=== PATIENT | male | born 1980 | race Caucasian/White ===

== ENCOUNTER 2024-11-03 11:06 | Emergency (ER) | payer MEDICAID, SELFPAY ==
[2024-11-03 11:18] VITALS: PULSE 88; RESP 16; O2SAT 98
[2024-11-03 11:47] VITALS: BP 159/79; PULSE 64; RESP 18; TEMP 36.8; O2SAT 98; BMI 27.3
--- NOTE | 2024-11-03 11:59 | EDNOTE_ITS ---
ED Headache RME/HPI General Chief Complaint: Headache Stated Complaint: HEADACHE Time Seen by Provider: 11/03/24 11:43 Arrival date/time: 11/03/24 11:06 This is a 44-year-old male patient denies any trauma. Patient states pain started in his neck and goes up his head. Patient states that it is a stabbing pain in the back of his head. Patient states that sometimes it feels like a shocking feeling in the back of his head. Patient also has complaints of feeling like something is crawling in under his skin in his head. Related Data Previous Rx's ?Medication ?Instructions ?Recorded ibuprofen 800 mg tablet 800 mg PO Q6H PRN pain #14 t abs 11/03/24 Allergies Allergy/AdvReac Type Severity Reaction Status Date / Time No Known Allergies Allergy Verified 11/03/24 11:20 Course Orders Category Date Time Status CT head/brain wo con Stat Exams 11/03/24 12:02 Completed Acetaminophen Tab [Tylenol ES Tab] Med 11/03/24 13:03 Once 1,000 mg PO X1 ONE CYCLObenzaPRINE [Flexeril] Med 11/03/24 13:03 Once 5 mg PO X1 ONE Ibuprofen Tab [Motrin Tab] Med 11/03/24 13:03 Once 800 mg PO X1 ONE Vital Signs Vital signs: Vital Signs Temperature 98.3 F 11/03/24 11:47 Pulse Rate 64 11/03/24 11:47 Respiratory Rate 18 11/03/24 11:47 Blood Pressure 159/79 H 11/03/24 11:47 Pulse Oximetry (%) 98 11/03/24 11:47 Oxygen Delivery Method Room Air 11/03/24 11:47 Headache MDM Narrative MDM Narrative:: I spoke to patient at length patient is very insistent on a CT scan. I offered patient pain medications and a muscle relaxant and he did not want it until he had a CT scan. Patient states that he feels like there is something wrong because he has never had a headache like this before. ct scan head: Findings: No significant ventricular enlargement. Intra-axial or extra-axial hemorrhage density is not seen. No mass effect or midline shift Basal cisterns are not remarkable. Fourth ventricle is midline. Cranial vault intact. Impression: Negative for acute hemorrhage, mass effect or midline shift Discharge Plan Plan Patient Disposition: HOME (Self Care) Patient condition on transfer: Stable Prescriptions/Referrals Prescriptions/Med Rec: New ibuprofen 800 mg tablet 800 mg PO Q6H PRN (Reason: pain) Qty: 14 0RF Referrals: Bharat Guthrie MD [Primary Care Provider] - In 1 week Problem List Clinical Impression: Headache Patient/Caregiver Discharge Instructions Discharge Activity: activity as tolerated Education Materials: Self-Care for Headaches Additional Instructions: Follow up with primary provider in 1-2 days. Come back to ED if symptoms change or worsen Print Language: [place] Stand Alone Forms: Tenisha Award Info., Patient Portal Info Letter PA/NUT SORTER OPERATOR Supervising Physician PA/NUT SORTER OPERATOR Supervising Physician: janet
--- NOTE | 2024-11-03 12:02 | XR_ITS ---
Examination: CT brain head without contrast. 2-D sagittal coronal reconstructions Date and time of exam:11/03/2024, 12:13 PM CTDI: vol (mGy):55 DLP: (mGycm):1124 Technique: Multiple CT axial sections of the brain have been obtained, 5 mm slice thickness. Contrast has not been administered. 2-D sagittal, coronal reconstructions have been obtained Low dose protocols were performed. One or more of the following dose reduction techniques were used; automated exposure control, adjustment of the mA and/or KV according to patient size, use of iterative reconstruction technique. Findings: No significant ventricular enlargement. Intra-axial or extra-axial hemorrhage density is not seen. No mass effect or midline shift Basal cisterns are not remarkable. Fourth ventricle is midline. Cranial vault intact. Impression: Negative for acute hemorrhage, mass effect or midline shift
[2024-11-03] MEDS: IBUPROFEN TAB 400 MG TABLET 800 MG PO (13:30)
[2024-11-03] MEDS: CYCLObenzaPRINE 5 MG TABLET PO (13:30)
[2024-11-03] MEDS: ACETAMINOPHEN 500 MG TABLET 1000 MG PO (13:30)
== END 2024-11-03 14:18 | disposition home or self-care (01) ==
PROVIDERS: Emergency Provider Family Medicine; PCP Family Medicine
DX: R51.9 Headache, unspecified (principal)
CPT/HCPCS: 70450; 99284; A9270

== ENCOUNTER 2024-11-30 05:58 | Emergency (ER) | payer MEDICAID, SELFPAY ==
[2024-11-30 06:00] VITALS: PULSE 104; RESP 18; O2SAT 98; BMI 22.7
[2024-11-30 06:03] VITALS: BP 165/79; PULSE 79; RESP 18; TEMP 36.7; O2SAT 98
--- NOTE | 2024-11-30 06:26 | XR_ITS ---
Examination: CT brain head without contrast. 2-D sagittal coronal reconstructions Date and time of exam:11/30/2024, 7:43 AM CTDI: vol (mGy):54 DLP: (mGycm):1064 INDICATION: Headache COMPARISON: 11/03/2024 Technique: Multiple CT axial sections of the brain have been obtained, 5 mm slice thickness. Contrast has not been administered. 2-D sagittal, coronal reconstructions have been obtained Low dose protocols were performed. One or more of the following dose reduction techniques were used; automated exposure control, adjustment of the mA and/or KV according to patient size, use of iterative reconstruction technique. Findings: No significant ventricular enlargement. Intra-axial or extra-axial hemorrhage density is not seen. No mass effect or midline shift Basal cisterns are not remarkable. Fourth ventricle is midline. Cranial vault intact. Impression: Negative for acute hemorrhage, mass effect or midline shift
[2024-11-30 07:56] VITALS: BP 181/82; PULSE 73; RESP 18; TEMP 36.8; O2SAT 98
--- NOTE | 2024-11-30 08:14 | PD.EDADULT ---
ED General RME/HPI General Chief complaint: Psychiatric Symptoms Stated complaint: BUGS ARE INSIDE OF HIM Time Seen by Provider: 11/30/24 06:10 Arrival date/time: 11/30/24 05:58 44-year-old male presents emergency department today complaints of headache and patient reports that he has bugs inside of him patient reports no chest pain or shortness of breath no fever Limitations: no limitations Related Data Previous Rx's ?Medication ?Instructions ?Recorded ibuprofen 800 mg tablet 800 mg PO Q6H PRN pain #14 tabs 11/03/24 ibuprofen 600 mg tablet 600 mg PO Q6H #30 tabs 11/30/24 mupirocin 2 % topical ointment 1 applic topical TID 10 days #22 11/30/24 grams Allergies Allergy/AdvReac Type Severity Reaction Status Date / Time No Known Allergies Allergy Verified 11/03/24 11:20 Review of Systems Review of Systems Systems Reviewed: All systems reviewed, normal except as documented Constitutional Constitutional: Reports system reviewed and no additional complaints, except as documented, Denies fever(s) and Reports headache(s) Eyes Eyes: Reports system reviewed and no additional complaints, except as documented and Denies blurry vision ENT Ears, Nose, Mouth, and Throat: Reports system reviewed and no additional complaints, except as documented, Reports headache(s), Denies nasal congestion and Denies nasal discharge Cardiovascular Cardiovascular: Reports system reviewed and no additional complaints, except as documented, Denies chest pain and Denies dyspnea Respiratory Respiratory: Reports system reviewed and no additional complaints, except as documented, Denies chest congestion, Denies cough and Denies dyspnea Gastrointestinal Gastrointestinal: Reports system reviewed and no additional complaints, except as documented and Denies abdominal pain Integumentary/Breasts Skin/Breast: Reports system reviewed and no additional complaints, except as documented and Reports rash (Skin rash right-sided neck) Neurologic Neurologic: Reports system reviewed and no additional complaints, except as documented, Reports as per HPI and Reports headache(s) Past Medical History Past Medical History CARDIAC: Negative Cardiac Disorders or Congestive Heart Failure RESPIRATORY: Negative Chronic Obstructive Pulmonary Disease (COPD) or Asthma GENITOURINARY: Negative Renal Disease ENDOCRINE: Negative Diabetes Mellitus Type 1 or Diabetes Mellitus Type 2 HEMATOLOGIC: Negative Sickle Cell Disease Social History SMOKING STATUS: Never smoker ED Exam General Limitations: Present no limitations General appearance: Present alert and in no apparent distress Head Head exam: Present atraumatic Eye Eye exam: Present normal appearance, PERRL and EOMI ENT ENT exam: Present normal exam, normal oropharynx and mucous membranes moist Neck Neck exam: Present normal inspection, full ROM and trachea midline Chest Chest inspection: Present normal inspection and symmetric chest wall rise Respiratory Respiratory exam: Present normal lung sounds bilaterally Cardiovascular Cardiovascular exam: Present regular rate, normal rhythm and normal heart sounds Abdominal Exam Abdominal exam: Present soft and normal bowel sounds Extremities Exam Extremities exam: Present normal inspection and full ROM Back Exam Back exam: Present normal inspection and full ROM Neurological Exam Neurological exam: Present alert, oriented X3 and CN II-XII intact Psychiatric Psychiatric exam: Present normal affect and normal mood Skin Skin exam: Present warm, dry, intact and normal color Course Quality Measures none Orders Category Date Time Status CT head/brain wo con Stat Exams 11/30/24 06:26 Completed Vital Signs Vital signs: Vital Signs Temperature 98.1 F 11/30/24 06:03 Pulse Rate 79 11/30/24 06:03 Respiratory Rate 18 11/30/24 06:03 Blood Pressure 165/79 H 11/30/24 06:03 Pulse Oximetry (%) 98 11/30/24 06:03 Oxygen Delivery Method Room Air 11/30/24 06:03 O2 saturation 98% room air within the limits MDM Patient data External records reviewed:: [facility] previous records Clinical information provided by:: patient Social determinants that could affect healthcare access:: none Patient has the following chronic illnesses:: None How is presenting disease/condition affected by chronic disease/condition?: no chronic disease Evaluation data The following diagnostics were reviewed and interpreted by me:: other (specify) Lab and/or radiology exams considered but not ordered:: N/A Interpretation Summary: Consider not ordered Medications Medications considered but not ordered:: Given Medication administrations:: Given Consultations Consultation(s) initiated? (list below): No Diagnosis Differential Diagnosis ED Complaint MDM: Formication, cellulitis, abscess, headache Most likely diagnosis given after review of the tests above:: Formication, atopic dermatitis, headache Admission Indicated Admission indicated?: not indicated Explain why admission is indicated or not indicated:: No criteria Admission Request Was there a request for admission?: No Disposition Plan Disposition Plan: Discharge Discharge Attestation Discharge Attestation: The patient and all family members were given an opportunity to ask questions and understood the discharge instructions. Discharge instructions specifically effects, indications for sooner follow up or return to the emergency department, and the expected course of current diagnosis. Patient condition: Stable Medical Decision Making MDM Narrative MDM Narrative: 44-year-old male presents emergency department today complaints of headache and patient reports that he has bugs inside of him patient reports no chest pain or shortness of breath no fever I discussed with the patient whether or not he has any psychiatric history patient declines any I suspect patient is most likely schizophrenic and if not schizophrenic patient most likely uses drugs. Symptoms are consistent with formication CT scan of the head obtained no acute emergent findings noted Patient discharged home in no distress to follow-up with primary care doctor in the next 24 to 48 hours and for any worsening symptoms to return to the ER immediately Differential Diagnosis Differential Diagnosis: Formication, cellulitis, abscess, headache Medical Records Medical records reviewed: Yes I reviewed the patient's medical records. Radiology Data Radiology results reviewed: Yes I reviewed the patient's radiology results. Discharge Plan Plan Patient Disposition: HOME (Self Care) Disposition Comment: Stable Prescriptions/Referrals Prescriptions/Med Rec: New mupirocin 2 % ointment 1 applic topical TID 10 Days Qty: 22 0RF ibuprofen 600 mg tablet 600 mg PO Q6H Qty: 30 0RF No Action ibuprofen 800 mg tablet 800 mg PO Q6H PRN (Reason: pain) Qty: 14 0RF Referrals: Bharat Guthrie MD [Primary Care Provider] - In 1 week Problem List Clinical Impression: Headache, Formication Patient/Caregiver Discharge Instructions Education Materials: Self-Care for Headaches Additional Instructions: Please follow up with your primary care doctor in the next 24-48hrs for any worsening symptoms return here immediately Print Language: [place] Stand Alone Forms: Tenisha Award Info., Patient Portal Info Letter PA/NEWSAGENT Supervising Physician PA/ADONIS Supervising Physician: Dr pyle
--- NOTE | 2024-11-30 08:30 | PRELIM_ITS ---
CT scan of the head without intravenous contrast (axial sections with sagittal and coronal reformats). November 30, 2024 at 0734 hours Clinical History: Headache. Comparison: No prior study is available for comparison. Findings: There is no evidence of intracranial hemorrhage, mass effect or midline shift. The ventricles, sulci and basal cisterns are unremarkable. The mastoid air cells and visualized paranasal sinuses are clear. Impression: No evidence of intracranial hemorrhage or mass effect. Report Electronically Signed By: Mike Steward 11/30/2024 8:30:32 AM [EST]
== END 2024-11-30 10:04 | disposition home or self-care (01) ==
PROVIDERS: Emergency Provider Emergency Medicine; PCP Family Medicine
DX: R51.9 Headache, unspecified (principal); R20.2 Paresthesia of skin
CPT/HCPCS: 70450; 99284